=== PATIENT | male | born 1995 | race Two or more races ===

== ENCOUNTER 2016-10-02 10:40 | Emergency (ER) | payer OTHER ==
[2016-10-02 10:49] VITALS: BP 103/59; PULSE 101; RESP 16; O2SAT 96
[2016-10-02 10:56] VITALS: TEMP 98.8
--- NOTE | 2016-10-02 12:04 | UCPHY ---
H & P Time Seen by Provider: 10/02/16 11:53 Patient Type: New HPI/ROS: This patient presents with a chief complaint of cough, sore throat associated with dizziness all of which began 2 days ago. He describes the dizziness as being off balance but also being lightheaded but without a sense of movement. He has not experienced any visual symptoms including diplopia he does have bilateral ear pain but no tenderness. Additionally he has bilateral ear pain and nasal congestion as well as headache. He denies fever. He feels somewhat achy and has some slight shortness of breath. REVIEW OF SYSTEMS: Constitutional: Malaise, no fever Eyes: Denies diplopia or any visual changes ENT: Nasal congestion, sore throat, bilateral ear pain but no tinnitus Respiratory: Nonproductive cough, shortness of breath Cardiac: No chest pain Gastrointestinal: Denies abdominal pain, nausea or vomiting. His appetite is slightly diminished Genitourinary: Not addressed Musculoskeletal: Generalized myalgias Skin: No rash Neurological: Headache Smoking Status: Former smoker Physical Exam: GENERAL: Well-appearing, well-nourished and in no acute distress. HEAD: Atraumatic, normocephalic. EYES: Pupils equal round and reactive to light, extraocular movements intact, sclera anicteric, conjunctiva are normal. No nystagmus ENT: TMs normal, nares patent, oropharynx clear without exudates. Moist mucous membranes. NECK: Normal range of motion, supple without lymphadenopathy or JVD. No tenderness LUNGS: Breath sounds clear to auscultation bilaterally and equal. No wheezes rales or rhonchi. HEART: Regular rate and rhythm without murmurs, rubs or gallops. ABDOMEN: Soft, nontender, EXTREMITIES: Normal range of motion, no pitting or edema. No clubbing or cyanosis. NEUROLOGICAL: Cranial nerves II through XII grossly intact. Normal speech, normal gait. PSYCH: Normal mood, normal affect. SKIN: Warm, dry, normal turgor, no visible rashes or lesions. Constitutional: Initial Vital Signs Temperature (C) 37.1 C 10/02/16 10:46 Heart Rate 101 H 10/02/16 10:46 Respiratory Rate 16 10/02/16 10:46 Blood Pressure 103/59 L 10/02/16 10:46 O2 Sat (%) 96 10/02/16 10:46 O2 Delivery Mode Room Air Allergies/Adverse Reactions: No Known Allergies Allergy (Verified 10/02/16 10:49) Home Medications: Medication Instructions Recorded Adderall 10 MG (*) 10/02/16 Medical Decision Making Differential Diagnosis: I believe that this patient has a viral syndrome and that his vertiginous symptoms are not related to a central cause. I do not feel that antibiotics are indicated. Departure - Departure Disposition: Home, Routine, Self-Care Clinical Impression: Acute bronchitis Qualifiers: Bronchitis organism: unspecified organism Qualifier Code: (J20.9) Acute bronchitis, unspecified Benign positional vertigo Qualifiers: Laterality: unspecified laterality Qualifier Code: (H81.10) Benign paroxysmal vertigo, unspecified ear Condition: Good Instructions: Acute Bronchitis (ED), Benign Paroxysmal Positional Vertigo (ED) , Dizziness (ED) Additional Instructions: If your symptoms have not improved in 3-5 days or if your symptoms have not resolved in 7 days you should be re-evaluated. If you develop a fever or began vomiting you should be seen sooner. Keep herself well hydrated but do not force herself to eat try meclizine [id number]. The dosage is 25 mg every 6-8 hours as needed For vertigo. Adult Pain & Fever Control: We recommend Acetaminophen (Tylenol) and Ibuprofen (Motrin, Advil) for pain and fever control. When fever is high or pain severe, both drugs can be used at the same time, but at different intervals. Please note the time differences. Your dose is: Acetaminophen [650]mg every 4 to 6 hours ibuprofen [600]mg every [6] hours with food OR naproxen Sodium (Aleve) [440]mg every 12 hours. Note: do not take Acetaminophen with Hydrocodone (Vicodin, Lortab) or Oxycodone (Percocet). These medications also contain Acetaminophen. No more than 3000 mg of Acetaminophen should be taken in 24 hours (for an adult) . The maximal dose of ibuprofen that it is safe in a 24-hour period is 2400 mg. You may take 400 mg every 4 hours, 600 mg every 6 hours or 800 mg every 8 hours safely. - PQRS PQRS Measurement: Not applicable
== END 2016-10-02 12:10 | disposition home or self-care (01) ==
LOC: CED 10:40
DX: J20.9 Acute bronchitis, unspecified (principal); H81.10 Benign paroxysmal vertigo, unspecified ear; Z87.891 Personal history of nicotine dependence
CPT/HCPCS: 99203-PO; G0463-PO